=== PATIENT | female | born 1995 | race Caucasian/White ===

== ENCOUNTER → 2017-04-11 | Outpatient (CLI) | payer BC ==
--- NOTE | 2017-04-11 12:59 | Diagnostic Imaging Report ---
INDICATION: survey. TECHNIQUE: Multiple real-time grayscale images were obtained over the gravid uterus. COMPARISON: None. FINDINGS: Single live intrauterine at 19 weeks 3 days by sonographic measurements. EDC by today's ultrasound is 09/02/2017. presentation is transverse. Normal amniotic fluid index. Grade 1 placenta is located posteriorly with no placenta previa. heart rate measures 142 beats per minute. There is good visualization of the kidneys, stomach, and brain; however there is poor visualization of the bladder, four-chamber heart, three-vessel cord, spine, and cord insertion due to positioning. Recommend short-term sonographic follow-up. Biometrical measurements are as follows: Biparietal 4.8 cm, age 20 weeks 3 days. Head circumference 16.9 cm, age 19 weeks 4 days. Abdominal circumference 13.9 cm, age 19 weeks 3 days. Femur length 2.7 cm, age 18 weeks 2 days. Sonographic estimate age: 19 weeks 3 days. Sonographic estimated date of delivery: 09/02/17. Estimated Weight: 264 gm (+/- 39 gm). LMP percentile: 8%. heart rate: 142 beats per minute. number: 1 of 1. IMPRESSION: 1. Single live intrauterine at 19 weeks 3 days by sonographic measurements. 2. Limited anatomical survey given positioning. Recommend short-term sonographic follow-up. Dictated by: Dictated on workstation # [id number]
== END ==
LOC: RAD 09:40
PROVIDERS: ATTEND Obstetrics & Gynecology
DX: Z34.02 Encounter for supervision of normal first pregnancy, second trimester (principal); Z36 Encounter for antenatal screening of mother; Z3A.19 19 weeks gestation of pregnancy
CPT/HCPCS: 76805

== ENCOUNTER → 2017-05-24 | Outpatient (CLI) | payer BC ==
--- NOTE | 2017-05-24 12:21 | Diagnostic Imaging Report ---
INDICATION: Followup bladder, four-chamber view, three-vessel cord, spine, and cord insertion. TECHNIQUE: Multiple Real-time grayscale images were obtained over the gravid uterus. COMPARISON: 04/11/2017. FINDINGS: The heart rate is 167 BPM. The placenta is posterior with no placenta previa. The upper and mid spine appears normal. The lower spine is not well seen. The four-chamber view appears unremarkable. The cord insertion is still not well seen. A three-vessel cord is demonstrated. The bladder is seen with no abnormal dilatation. IMPRESSION: The lower spine and cord insertion are still not well seen due to position. Followup in 1 to 2 weeks is suggested. Dictated by: Dictated on workstation # [id number]
== END ==
LOC: RAD 09:45
PROVIDERS: ATTEND Obstetrics & Gynecology
DX: Z34.02 Encounter for supervision of normal first pregnancy, second trimester (principal); Z3A.00 Weeks of gestation of pregnancy not specified
CPT/HCPCS: 76816

== ENCOUNTER 2017-06-23 05:20 | Outpatient (CLI) | payer BC ==
[~2017-06-23] VITALS: Ht 167.6 cm; Wt 73.6 kg
[2017-06-23 05:39] VITALS: BP 103/60
[2017-06-23] MEDS ORDERED: PREN-37 PO (05:46)
[2017-06-23 05:53] LABS: BILIRUBIN,URINE NEGATIVE (NEGATIVE); KETONES,URINE NEGATIVE (NEGATIVE); LEUKOCYTE ESTERASE ,URINE 3+ (NEGATIVE); NITRITE,URINE NEGATIVE (NEGATIVE); PH,URINE 6 (5-9); PROTEIN,URINE 2+ (NEGATIVE); UROBILINOGEN,URINE NORMAL (NORMAL)
[2017-06-23 06:29] LABS: CALCIUM OXALATE CRYSTALS,UR FEW /LPF
[2017-06-23] MEDS ORDERED: ceFAZolin INJECTION 1,000 MG in NS (IVPB) 50 ML IV ONE (06:45)
[2017-06-23] MEDS ORDERED: D5 LR IV SOLUTION 1,000 ML IV ONE (06:45)
[2017-06-23 07:32] LABS: BASOPHILS % (AUTO) 0 % (0-10); EOSINOPHILS # (AUTO) 0.1 10^3/uL (0.0-0.3); EOSINOPHILS % (AUTO) 1 % (0-10); LYMPHOCYTES # (AUTO) 1.2 X 10^3 (1.0-4.0); LYMPHOCYTES % (AUTO) 12 % (12-44); MEAN CORPUSCULAR HEMOGLOBIN 30 PG (25-34); MEAN CORPUSCULAR HGB CONC 33 G/DL (32-36); MEAN CORPUSCULAR VOLUME 90 FL (80-99); MEAN PLATELET VOLUME 10.4 FL (7.4-10.4); MONOCYTES # (AUTO) 0.8 X 10^3 (0.0-1.0); MONOCYTES % (AUTO) 8 % (0-12); NEUTROPHILS # (AUTO) 7.9 X 10^3 (1.8-7.8); NEUTROPHILS % (AUTO) 79 % (42-75); PLATELET COUNT 241 10^3/uL (130-400); RED BLOOD COUNT 3.97 10^6/uL (4.35-5.85); RED CELL DISTRIBUTION WIDTH 12.8 % (10.0-14.5)
[2017-06-23 07:50] LABS: ALANINE AMINOTRANSFERASE 11 U/L (0-55); ALBUMIN 3.8 GM/DL (3.2-4.5); AMYLASE 60 U/L (25-125); ANION GAP 12 MMOL/L (5-14); ASPARTATE AMINO TRANSFERASE 16 U/L (5-34); BILIRUBIN,DIRECT 0.1 MG/DL (0.0-0.3); BILIRUBIN,INDIRECT 0.3 MG/DL; BILIRUBIN,TOTAL 0.4 MG/DL (0.1-1.0); BLOOD UREA NITROGEN 6 MG/DL (7-18); BUN/CREATININE RATIO 10; CALCIUM 9.6 MG/DL (8.5-10.1); CARBON DIOXIDE 19 MMOL/L (21-32); CHLORIDE 108 MMOL/L (98-107); CREATININE SERUM 0.63 MG/DL (0.60-1.30); GFR ESTIMATED > 60; GLUCOSE 82 MG/DL (70-105); LIPASE 24 U/L (8-78); POTASSIUM 3.7 MMOL/L (3.6-5.0); SODIUM 139 MMOL/L (135-145); TOTAL PROTEIN 7.1 GM/DL (6.4-8.2)
[2017-06-23 08:03] VITALS: BP 106/65
[2017-06-23] MEDS ORDERED: CEPH-507 PO (08:09)
[2017-06-23] MEDS ORDERED: ACET-789 PO (08:09)
--- NOTE | 2017-06-23 08:09 | Progress Note-Standard ---
Standard Progress Note Progress Notes/Assess & Plan Date Seen by Provider: Jun 23, 2017 Time Seen by Provider: 07:50 Progress/Assessment & Plan This 22-year-old female was admitted for observation this morning due to acute onset upper abdominal pain. The patient reports she was awoken from sleep by a sharp pain in the upper abdomen feeling like a knife sliding up and underneath her ribs. The patient reports a 9 out of 10 on the pain scale and was crying in pain when her parents brought her to the hospital. Since then her pain has now subsided to a 3 out of 10. She denies any nausea and no vomiting. She denies any contractions or lower abdominal pain or pressure. She reports positive movement Vital Sign - Last 24 Hours 06/23/17 05:39 Temp 97.1 Pulse 93 Resp 18 B/P (MAP) 103/60 O2 Delivery Room Air NST is reactive with a baseline of 135 moderate variability accelerations noted and no decelerations [place]: Irritability with rare contractions noted Laboratory Tests Test 06/23/17 05:30 06/23/17 07:14 Range/Units Urine Color YELLOW Urine Clarity SLIGHTLY CLOUDY Urine pH 6 5-9 Urine Specific [place] 1.025 H 1.016-1.022 Urine Protein 2+ H NEGATIVE Urine Glucose (UA) NEGATIVE NEGATIVE Urine Ketones NEGATIVE NEGATIVE Urine Nitrite NEGATIVE NEGATIVE Urine Bilirubin NEGATIVE NEGATIVE Urine Urobilinogen NORMAL NORMAL MG/DL Urine Leukocyte Esterase 3+ H NEGATIVE Urine RBC (Auto) 1+ H NEGATIVE Urine RBC NONE /HPF Urine WBC 10-25 H /HPF Urine Squamous Epithelial Cells 2-5 /HPF Urine Crystals PRESENT H /LPF Urine Calcium Oxalate Crystals FEW H /LPF Urine Bacteria LARGE H /HPF Urine Casts NONE /LPF Urine Mucus SMALL H /LPF Urine Culture Indicated YES White Blood Count 10.0 4.3-11.0 10^3/uL Red Blood Count 3.97 L 4.35-5.85 10^6/uL Hemoglobin 11.9 11.5-16.0 G/DL Hematocrit 36 35-52 % Mean Corpuscular Volume 90 80-99 FL Mean Corpuscular Hemoglobin 30 25-34 PG Mean Corpuscular Hemoglobin Concent 33 32-36 G/DL Red Cell Distribution Width 12.8 10.0-14.5 % Platelet Count 241 130-400 10^3/uL Mean Platelet Volume 10.4 7.4-10.4 FL Neutrophils (%) (Auto) 79 H 42-75 % Lymphocytes (%) (Auto) 12 12-44 % Monocytes (%) (Auto) 8 0-12 % Eosinophils (%) (Auto) 1 0-10 % Basophils (%) (Auto) 0 0-10 % Neutrophils # (Auto) 7.9 H 1.8-7.8 X 10^3 Lymphocytes # (Auto) 1.2 1.0-4.0 X 10^3 Monocytes # (Auto) 0.8 0.0-1.0 X 10^3 Eosinophils # (Auto) 0.1 0.0-0.3 10^3/uL Basophils # (Auto) 0.0 0.0-0.1 10^3/uL Sodium Level 139 135-145 MMOL/L Potassium Level 3.7 3.6-5.0 MMOL/L Chloride Level 108 H 98-107 MMOL/L Carbon Dioxide Level 19 L 21-32 MMOL/L Anion Gap 12 5-14 MMOL/L Blood Urea Nitrogen 6 L 7-18 MG/DL Creatinine 0.63 0.60-1.30 MG/DL Estimat Glomerular Filtration Rate > 60 BUN/Creatinine Ratio 10 Glucose Level 82 70-105 MG/DL Calcium Level 9.6 8.5-10.1 MG/DL Total Bilirubin 0.4 0.1-1.0 MG/DL Direct Bilirubin 0.1 0.0-0.3 MG/DL Indirect Bilirubin 0.3 MG/DL Aspartate Amino Transf (AST/SGOT) 16 5-34 U/L Alanine Aminotransferase (ALT/SGPT) 11 0-55 U/L Alkaline Phosphatase 73 40-136 U/L Total Protein 7.1 6.4-8.2 GM/DL Albumin 3.8 3.2-4.5 GM/DL Amylase Level 60 25-125 U/L Lipase 24 8-78 U/L Preliminary review of the ultrasound with the environmental services tech reveals mild dilation of the gallbladder, with evidence of biliary sludge. The cystic duct and the common bile duct appeared to be normal. There is no gallbladder wall thickening. Bilateral kidneys are within normal limits with mild hydronephrosis noted. No ureteral obstruction noted. Diagnosis: 22-year-old at 30 weeks gestation Biliary colic secondary to sludge Urinary tract infection Plan: Extensive dietary precautions given to the patient about avoiding high-fat meals as this would induce likely another episode of pain. The patient given Tylenol 3 to use for severe pain episodes. She is told to return to care if any fever or pain that is not resolved by the Tylenol 3 should occur. labor precautions reviewed UTI treated with Keflex 500 mg 4 times a day for 7 days and a culture is sent. NORA MARS DO Jun 23, 2017 8:09 am
--- NOTE | 2017-06-23 08:36 | Diagnostic Imaging Report ---
PROCEDURE: US abdomen complete. TECHNIQUE: Multiple real-time grayscale images were obtained over the abdomen in various projections. INDICATION: Upper abdominal pain. The patient is 30 weeks . FINDINGS: The visualized portions of the pancreas appear unremarkable. The liver is fairly homogeneous. No focal lesion is seen. There is hepatopetal flow in the portal vein. There is small amount of sludge suggested in the gallbladder with mild shadowing suggestive of stone components. There is also ringdown artifact seen from the gallbladder wall suggestive of adenomyomatosis. No gallbladder wall thickening. Sonographic Forrest sign is reportedly negative. The spleen is 9.7 x 4.5 x 3.9 cm. The right kidney is 12.5 cm, and the left kidney is 12.2 cm in length. There is mild hydronephrosis of the right kidney. The abdominal aorta is obscured. IVC is largely obscured. No fluid collection or ascites seen. IMPRESSION: 1. There is gallbladder sludge with some shadowing suggestive of small stones. No evidence of cholecystitis. 2. There is mild hydronephrosis of the right kidney, probably related to the known . Dictated by: Dictated on workstation # [id number]
== END 2017-06-23 08:55 | disposition home or self-care (01) ==
LOC: WSo 05:20 → LDRP 05:23 → WSo 08:55
PROVIDERS: ATTEND Obstetrics & Gynecology
DX: O26.613 Liver and biliary tract disorders in pregnancy, third trimester (principal); K80.50 Calculus of bile duct without cholangitis or cholecystitis without obstruction; O23.43 Unspecified infection of urinary tract in pregnancy, third trimester; Z3A.30 30 weeks gestation of pregnancy
CPT/HCPCS: 36415; 76700; 80053; 81000; 82150; 82247; 82248; 83690; 85025; 87088; 96361; 96375; 99213

== ENCOUNTER 2017-08-12 21:37 | Outpatient (CLI) | payer BC ==
[~2017-08-12] VITALS: Ht 167.6 cm; Wt 76.7 kg
[2017-08-12] VITALS (8 sets, daily range): BP systolic 110–132; BP diastolic 59–82
[~2017-08-12 21:37] MED LIST: ACET-789 PO; CEPH-507 PO; PREN-37 PO
[2017-08-12 21:58] LABS: BILIRUBIN,URINE NEGATIVE (NEGATIVE); KETONES,URINE NEGATIVE (NEGATIVE); LEUKOCYTE ESTERASE ,URINE 2+ (NEGATIVE); NITRITE,URINE NEGATIVE (NEGATIVE); PH,URINE 6.5 (5-9); PROTEIN,URINE NEGATIVE (NEGATIVE); UROBILINOGEN,URINE NORMAL (NORMAL)
[2017-08-12] MEDS ORDERED: ONDN4T PO (22:08)
[2017-08-12] MEDS ORDERED: CALC500T7 PO (22:09)
[2017-08-12] MEDS ORDERED: ACETAMINOPHEN 500 MG TAB (TYLENOL) ONE (22:57)
[2017-08-12] MEDS ORDERED: ACETAMINOPHEN 500 MG TAB (TYLENOL) PO ONE (23:15)
[2017-08-12] MEDS ORDERED: CEPH-507 PO (23:42)
== END 2017-08-12 23:50 | disposition home or self-care (01) ==
LOC: WSo 21:37 → LDRP 21:38 → WSo 23:50
PROVIDERS: ATTEND Obstetrics & Gynecology
DX: O23.43 Unspecified infection of urinary tract in pregnancy, third trimester (principal); O26.893 Other specified pregnancy related conditions, third trimester; M54.9 Dorsalgia, unspecified; Z3A.37 37 weeks gestation of pregnancy
CPT/HCPCS: 81000; 87088; 99214

== ENCOUNTER 2017-08-30 05:02 | Inpatient (IN) | payer BC, OTHER ==
[2017-08-30] VITALS (7 sets, daily range): BP systolic 111–134; BP diastolic 68–89
[~2017-08-30] VITALS: Ht 167.6 cm; Wt 78.7 kg
[~2017-08-30 05:02] MED LIST changes: +CALC500T7 PO; +ONDN4T PO
[2017-08-30] MEDS ORDERED: NS IV 1000 ML 1,000 ML ONE (05:11)
[2017-08-30] MEDS ORDERED: D5 LR IV SOLUTION 1,000 ML IV SCH (05:29)
[2017-08-30] MEDS ORDERED: NS IV 500 ML 500 ML IV ONE (05:30)
[2017-08-30 05:35] LABS: BASOPHILS % (AUTO) 0 % (0-10); EOSINOPHILS # (AUTO) 0.1 10^3/uL (0.0-0.3); EOSINOPHILS % (AUTO) 1 % (0-10); LYMPHOCYTES # (AUTO) 2.1 X 10^3 (1.0-4.0); LYMPHOCYTES % (AUTO) 25 % (12-44); MEAN CORPUSCULAR HEMOGLOBIN 30 PG (25-34); MEAN CORPUSCULAR HGB CONC 33 G/DL (32-36); MEAN CORPUSCULAR VOLUME 89 FL (80-99); MEAN PLATELET VOLUME 10.9 FL (7.4-10.4); MONOCYTES # (AUTO) 0.6 X 10^3 (0.0-1.0); MONOCYTES % (AUTO) 7 % (0-12); NEUTROPHILS # (AUTO) 5.7 X 10^3 (1.8-7.8); NEUTROPHILS % (AUTO) 67 % (42-75); PLATELET COUNT 256 10^3/uL (130-400); RED BLOOD COUNT 3.88 10^6/uL (4.35-5.85); WHITE BLOOD COUNT 8.5 10^3/uL (4.3-11.0)
[2017-08-30] MEDS ORDERED: CITRIC ACID/SOB CIT (BICITRA) 30 ML UDC ONE (05:42)
[2017-08-30] MEDS ORDERED: METOCLOPRAMIDE INJ 10 MG/2 ML (REGLAN) ONE (05:42)
[2017-08-30] MEDS ORDERED: FAMOTIDINE 20MG/2ML IV (PEPCID) ONE (05:42)
[2017-08-30] MEDS ORDERED: ceFAZolin 2 GM/50 ML NS 50 ML ONE (05:42)
[2017-08-30] MEDS ORDERED: ceFAZolin 2 GM/50 ML NS 50 ML IV ONE (05:45)
--- NOTE | 2017-08-30 05:57 | History & Physical-OB ---
OB - Chief Complaint & HPI Date/Time Date of Admission: Date of Admission: Aug 30, 2017 at 05:15 Time Seen by Provider: 05:45 Chief Complaint/History Hx : 1 Hx Para: 0 Expected Date of Delivery: Aug 30, 2017 Gestational Age in Weeks: 40 Indication for : other (Placental abruption, vaginal hemorrhage) Other reason for admission: Placental abruption, vaginal hemorrhage Admission Nurse Assessment Rev: Yes History of Labs O pos Antibody neg RI RPR NR HBsAg NR HIV NR GC neg GBS neg Allergies and Home Medications Allergies Coded Allergies: No Known Drug Allergies (Unverified , 06/23/17) Home Medications Calcium Carbonate 200 Mg Tab.chew, 200 MG PO PRN, (Reported) Cephalexin 500 Mg Capsule, 500 MG PO QID for 7 Days, #28 Ref 0 Prescribed by: IRENE TUTTLE on 08/12/17 2342 Ondansetron HCl 4 Mg Tab, 4 MG PO PRN, (Reported) Vit/Iron Fumarate/FA 1 Each Tablet, 1 EACH PO DAILY, (Reported) OB - History Hx of Present Care: Yes Ultrasounds: Normal mid trimester US Obstetrical Complications: None Medical Complications: None Patient Past Medical History none Social History/Family History Recent Infectious Disease Expo: No OB - Admission Exam Physical Exam HEENT: NCAT Heart: Rhythm Normal Lungs: Clear Abdomen: Gravid Extremities: Normal Reflexes: Normal Cervical Dilatation: 2cm Effacement: 75% Station: -1 Membranes: Intact Heart Rate: 130's Accelerations: No Accelerations Decelerations: Variable Decelerations Short Term Variability: Absent Nursing Home Variability: Absent (0-2) Contractions on Admission: < 5 Minutes Apart Intensity: Firm Labs Laboratory Tests Test 08/30/17 05:25 Range/Units White Blood Count 8.5 4.3-11.0 10^3/uL Red Blood Count 3.88 L 4.35-5.85 10^6/uL Hemoglobin 11.5 11.5-16.0 G/DL Hematocrit 35 35-52 % Mean Corpuscular Volume 89 80-99 FL Mean Corpuscular Hemoglobin 30 25-34 PG Mean Corpuscular Hemoglobin Concent 33 32-36 G/DL Red Cell Distribution Width 13.0 10.0-14.5 % Platelet Count 256 130-400 10^3/uL Mean Platelet Volume 10.9 H 7.4-10.4 FL Neutrophils (%) (Auto) 67 42-75 % Lymphocytes (%) (Auto) 25 12-44 % Monocytes (%) (Auto) 7 0-12 % Eosinophils (%) (Auto) 1 0-10 % Basophils (%) (Auto) 0 0-10 % Neutrophils # (Auto) 5.7 1.8-7.8 X 10^3 Lymphocytes # (Auto) 2.1 1.0-4.0 X 10^3 Monocytes # (Auto) 0.6 0.0-1.0 X 10^3 Eosinophils # (Auto) 0.1 0.0-0.3 10^3/uL Basophils # (Auto) 0.0 0.0-0.1 10^3/uL OB - Assessment/Plan/Diagnosis Assessment Assessment: section Plan Plan: Section Other Plan STAT section called, concern for well being discussed with patient and briefly discuss risk of . Will proceed as soon as OR able. Discharge Diagnosis Diagnosis: 22 yo @ 40 weeks Placental abruption with vaginal hemorrhage distress Remote from delivery NORA MARS DO Aug 30, 2017 05:56
[2017-08-30] MEDS ORDERED: OXYTOCIN/NORMAL SALINE 500 ML IV SCH (05:58)
[2017-08-30] MEDS ORDERED: CATHETER FLUSH 10 ML SYR IV SCH (06:00)
[2017-08-30] MEDS ORDERED: TETANUS,DIPTH,PERTUSS P/F (BOOSTRIX) 0.5 ML VIAL IM SCH (06:00)
[2017-08-30] MEDS ORDERED: MEASLES,MUMPS,RUBELLA 1 EA INJ SC SCH (06:00)
[2017-08-30] MEDS ORDERED: ONDANSETRON 4 MG/2 ML (SDV) Z0FRAN IVP PRN ×2 (06:00→07:15)
[2017-08-30] MEDS ORDERED: HYDROmorphone (DILAUDID) 2 MG/ML VIAL IVP PRN (06:00)
[2017-08-30] MEDS ORDERED: MIDAZOLAM 2 MG/2 ML (VERSED) VIAL ONE (06:10)
[2017-08-30] MEDS ORDERED: proPOfol 200 MG/20 ML (DIPRIVAN) VIAL IV ONE (06:11)
[2017-08-30] MEDS ORDERED: SEVOFLURANE (ULTANE) 15 ML INHAL SOLN ONE ×3 (06:11→06:36)
[2017-08-30] MEDS ORDERED: SUCCINYLCHOLINE INJ 100 MG/5 ML SYR ONE (06:11)
[2017-08-30] MEDS ORDERED: fentaNYL INJECTION 100 MCG/2 ML AMP ONE (06:21)
[2017-08-30] MEDS ORDERED: morphine INJ 10 MG/ML 1ML (SYR OR VIAL) ONE (06:41)
[2017-08-30] MEDS: morphine INJ 10 MG/ML 1ML (SYR OR VIAL) IVP PRN ×2 (07:09→07:21)
--- NOTE | 2017-08-30 07:18 | Diagnostic Imaging Report ---
EXAM: ABDOMEN/KUB 1VIEW INDICATION: Emergency section. Postoperative. COMPARISON: None. FINDINGS: No radiopaque foreign bodies. Nonspecific bowel gas pattern. No acute osseous findings. IMPRESSION: Negative for postoperative purposes. Dictated by: Dictated on workstation # [id number]
[2017-08-30] MEDS: KETOROLAC 30 MG/ML VIAL IVP SCH ×3 (07:21→20:38)
[2017-08-30] MEDS ORDERED: LACTATED RINGERS 1,000 ML IV PRN (08:58)
[2017-08-30] MEDS ORDERED: FAMOTIDINE 20MG/2ML IV (PEPCID) IV ONE (09:00)
[2017-08-30] MEDS ORDERED: CITRIC ACID/SOB CIT (BICITRA) 30 ML UDC PO ONE (09:00)
[2017-08-30] MEDS ORDERED: METOCLOPRAMIDE INJ 10 MG/2 ML (REGLAN) IV ONE (09:00)
[2017-08-30] MEDS: DOCUSATE SODIUM 100 MG (COLACE) CAP PO SCH ×2 (09:37→20:38)
[2017-08-30] MEDS: HYDROcodone/APAP 5 MG/325 MG (LORTAB) TAB PO PRN ×2 (09:38→18:57)
--- NOTE | 2017-08-30 18:01 | OPERATIVE REPORT ---
DATE OF SERVICE: PREOPERATIVE DIAGNOSIS: 1. A 22-year-old 40 weeks gestation. 2. Placental abruption. 3. distress. 4. Remote from delivery. POSTOPERATIVE DIAGNOSIS: 1. A 22-year-old 40 weeks gestation. 2. Placental abruption. 3. distress. 4. Remote from delivery. PROCEDURE: Primary low transverse section, emergency. SURGEON: NORA MARS DO. ANESTHESIA: General endotracheal. EBL: 400 mL. URINE OUTPUT: 20 mL. FLUIDS: 800 mL of lactated Ringer's solution. FINDINGS: Live male infant, weight pending with Apgars of 4 and 8. Grossly normal appearing uterus, bilateral fallopian tubes and ovaries and grossly identified large placental abruption approximately half of the placental surface. SPECIMEN SENT: Placenta. INDICATION FOR PROCEDURE: This 22-year-old female presented to the emergency department with an acute vaginal hemorrhage at 40 weeks gestation. She stated that she woke up from sleep with a large amount of bleeding noted. This continued to soak through her clothes and she proceeded to the emergency department. Once on the labor floor heart tones were initially found to be stable, however she continued to contract every 2-3 minutes. The patient was not terribly uncomfortable based on nursing assessment, however bleeding continued to be profuse. Therefore I was contacted prior to labs being drawn. I ordered admission orders and presented to the hospital urgently. Upon my presentation to the hospital there began to be evidence of distress with variable decelerations down into the 70s with return to baseline in the 130s. Variability began to decrease and decelerations began to be more frequent and prolonged. I evaluated the patient. There was a significant amount of vaginal bleeding occurring especially with contractions. Cervix was 2 cm, 70% effaced, -2 station and posterior. Due to the patient being remote from delivery and intolerance of this abruption, I discussed with the patient proceeding with emergency . Risk was reviewed with the patient briefly including risk of bleeding and infection and damaging any of the surrounding structures including but not limited to the uterus, bowel, bladder, risk from anesthesia. However I did express to the patient my concern for well being at which point she was agreeable to proceed. Consent was obtained. The patient was taken to the operating room prior to anesthesia staff being available but once I knew that anesthesia in the building, we took the patient back to the operating room. OPERATIVE REPORT IN DETAIL: Once in the operating room the patient is placed on the operating room table. Bonilla catheter was placed and the patient is prepped and draped by myself and a labor nurse present. There is no preoperative count performed. Once I have notification that anesthesia has airway access I proceed with making a Pfannenstiel skin incision and carrying it down to the underlying fascia, stretching it using blunt traction, I stretch the rectus muscles superior and inferiorly with blunt traction. The peritoneum is identified and entered bluntly and extended using blunt traction. The lower uterine segment is then identified. The low transverse incisions made to the lower uterine segment at which point I am able to extend the lower uterine segment laterally and rupture membranes with digital pressure. The infant is found in the vertex presentation. The infant's head is elevated up to the incision, anterior and posterior shoulders are delivered and is then brought onto the operative field where the cord is then milked back to the . It is dually clamped and cut and infant is handed off to the waiting rn tele who I called for on delivery which was Dr. Calderon. Cord blood is then collected however there is scant amount of blood in the umbilical cord. Upon evaluating the placenta nearly half of its mass is protruding through the uterine incision prior to me even evaluating its release suspicious for a large partial abruption. The remainder of the placenta is delivered spontaneously there at that point and IV Pitocin is initiated to facilitate uterine contraction. Uterine fundus becomes firm with bimanual massage and a Rashmi ring retractor is then placed into the peritoneal incision which offers excellent lateral sidewall retraction. I then exteriorized the uterus and cleared of all endometrial clots and debris. I then proceeded with closing the uterine incision using 0 Vicryl suture in a running locked fashion and second layer of imbricating 0 Monocryl was placed. Excellent hemostasis was noted after doing this. I then copiously irrigated the pelvis using normal saline. There is no active bleeding noted from any of my dissection planes. I placed the uterus back within the pelvis and placed the Interceed antiadhesive over my low transverse incision. I proceeded with closing the peritoneal incision using 3-0 Vicryl suture in a running fashion. The rectus muscle was reapproximated using 3-0 Vicryl suture in interrupted fashion. The fascia was reapproximated using 0 Vicryl suture in a running fashion. The subcutaneous tissue was reapproximated using a 3-0 plain interrupted subcutaneous stitch and the skin was reapproximated using 4-0 Monocryl and a running subcuticular. Dermabond was applied to incision. Sterile dressing is adhesive white tape. The patient tolerated the procedure well and taken to recovery area in stable condition. Postop flat plate abdominal x-ray is performed and is negative for any retained sponges or instruments. Two grams of Ancef is given preoperatively for infection prophylaxis. Job ID: [id number] DocumentID: [id number] Dictated Date: 08/30/2017 07:17:51 Field Mechanical Meter Tester Date: 08/30/2017 18:01:07 Dictated By: DO TEMO ANDERSON
[2017-08-30] MEDS: CATHETER FLUSH 10 ML SYR IV SCH (20:38)
[2017-08-31] VITALS (15 sets, daily range): BP systolic 86–133; BP diastolic 18–82
[2017-08-31] MEDS: KETOROLAC 30 MG/ML VIAL IVP SCH (02:16)
[2017-08-31] MEDS: CATHETER FLUSH 10 ML SYR IV SCH (02:16)
[2017-08-31] MEDS: HYDROcodone/APAP 5 MG/325 MG (LORTAB) TAB PO PRN ×3 (02:29→19:52)
[2017-08-31 06:07] LABS: BASOPHILS % (AUTO) 0 % (0-10); EOSINOPHILS % (AUTO) 0 % (0-10); LYMPHOCYTES # (AUTO) 1.2 X 10^3 (1.0-4.0); LYMPHOCYTES % (AUTO) 11 % (12-44); MEAN CORPUSCULAR HEMOGLOBIN 30 PG (25-34); MEAN CORPUSCULAR HGB CONC 32 G/DL (32-36); MEAN CORPUSCULAR VOLUME 91 FL (80-99); MEAN PLATELET VOLUME 10.2 FL (7.4-10.4); MONOCYTES # (AUTO) 0.6 X 10^3 (0.0-1.0); MONOCYTES % (AUTO) 6 % (0-12); NEUTROPHILS # (AUTO) 9.8 X 10^3 (1.8-7.8); NEUTROPHILS % (AUTO) 84 % (42-75); PLATELET COUNT 129 10^3/uL (130-400); RED BLOOD COUNT 1.96 10^6/uL (4.35-5.85); RED CELL DISTRIBUTION WIDTH 13.2 % (10.0-14.5); WHITE BLOOD COUNT 11.7 10^3/uL (4.3-11.0)
[2017-08-31] MEDS ORDERED: NS IV 500 ML 500 ML IV SCH (06:46)
[2017-08-31] MEDS ORDERED: INFLUENZA TRIvalent 2017-2018 0.5 ML/45 MCG SYR IM ONE (07:00)
[2017-08-31] MEDS: IBUPROFEN 600 MG (MOTRIN) TAB PO SCH ×3 (08:06→21:28)
[2017-08-31] MEDS: DOCUSATE SODIUM 100 MG (COLACE) CAP PO SCH ×2 (08:06→19:52)
[2017-08-31 13:36] LABS: INR 0.9 (0.8-1.4); PROTHROMBIN TIME PATIENT 12.4 SEC (12.2-14.7)
--- NOTE | 2017-08-31 15:00 | Progress Note-Standard ---
Standard Progress Note Progress Notes/Assess & Plan Date Seen by Provider: Aug 31, 2017 Time Seen by Provider: 12:30 Progress/Assessment & Plan Patient doing well today. Feeling very weak, but pain controlled. Denies heavy lochia, no other concerns voiced. Vital Sign - Last 24 Hours 08/30/17 08/30/17 08/31/17 08/31/17 16:00 20:38 00:05 04:46 Temp 97.6 98.6 98.7 98.5 Pulse 88 102 88 86 Resp 18 18 18 18 B/P (MAP) 126/82 111/68 106/59 107/62 Pulse Ox 97 98 98 98 O2 Delivery Room Air Room Air Room Air Room Air 08/31/17 08/31/17 08/31/17 08/31/17 08:04 08:35 08:44 08:59 Temp 98.8 98.3 98.3 98.0 Pulse 82 86 86 88 Resp 18 18 18 18 B/P (MAP) 114/70 121/72 121/72 120/77 Pulse Ox 98 98 98 99 O2 Delivery Room Air Room Air Room Air Room Air 08/31/17 08/31/17 08/31/17 08/31/17 08:59 09:21 09:54 09:54 Temp 98.0 97.5 97.3 97.3 Pulse 88 82 75 75 Resp 18 18 18 18 B/P (MAP) 120/72 116/67 112/59 112/59 Pulse Ox 99 99 99 99 O2 Delivery Room Air Room Air Room Air Room Air 08/31/17 08/31/17 08/31/17 08/31/17 10:53 10:53 10:53 12:15 Temp 98.1 98.1 98.1 98.1 Pulse 89 81 89 96 Resp 20 20 20 18 B/P (MAP) 113/54 113/54 113/54 120/72 Pulse Ox 99 99 99 99 O2 Delivery Room Air Room Air Room Air Room Air 08/31/17 08/31/17 08/31/17 12:20 12:35 14:15 Temp 98.2 98.7 97.8 Pulse 96 100 99 Resp 18 18 18 B/P (MAP) 120/72 114/69 125/79 Pulse Ox 99 99 99 O2 Delivery Room Air Room Air Room Air Incision: c/d/i Laboratory Tests Test 08/31/17 05:50 08/31/17 13:14 Range/Units White Blood Count 11.7 H 4.3-11.0 10^3/uL Red Blood Count 1.96 L 4.35-5.85 10^6/uL Hemoglobin 5.8 #*L 11.5-16.0 G/DL Hematocrit 18 *L 35-52 % Mean Corpuscular Volume 91 80-99 FL Mean Corpuscular Hemoglobin 30 25-34 PG Mean Corpuscular Hemoglobin Concent 32 32-36 G/DL Red Cell Distribution Width 13.2 10.0-14.5 % Platelet Count 129 L 130-400 10^3/uL Mean Platelet Volume 10.2 7.4-10.4 FL Neutrophils (%) (Auto) 84 H 42-75 % Lymphocytes (%) (Auto) 11 L 12-44 % Monocytes (%) (Auto) 6 0-12 % Eosinophils (%) (Auto) 0 0-10 % Basophils (%) (Auto) 0 0-10 % Neutrophils # (Auto) 9.8 H 1.8-7.8 X 10^3 Lymphocytes # (Auto) 1.2 1.0-4.0 X 10^3 Monocytes # (Auto) 0.6 0.0-1.0 X 10^3 Eosinophils # (Auto) 0.0 0.0-0.3 10^3/uL Basophils # (Auto) 0.0 0.0-0.1 10^3/uL Prothrombin Time 12.4 12.2-14.7 SEC INR Comment 0.9 0.8-1.4 Activated Partial Thromboplast Time 27 24-35 SEC Fibrinogen 427 221-496 MG/DL Diagnosis: PPD 1 Emergency PLTCS Abruptio placentae Acute blood loss anemia P: 2 u PRBC ordered and given today. Replace iron Continue routine PP care NORA MARS DO Aug 31, 2017 3:00 pm
[2017-09-01 01:00] VITALS: BP 119/78
[2017-09-01] MEDS: IBUPROFEN 600 MG (MOTRIN) TAB PO SCH ×2 (03:07→08:53)
[2017-09-01 05:30] VITALS: BP 117/77
[2017-09-01 05:52] LABS: BASOPHILS % (AUTO) 0 % (0-10); EOSINOPHILS % (AUTO) 0 % (0-10); LYMPHOCYTES # (AUTO) 1.5 X 10^3 (1.0-4.0); LYMPHOCYTES % (AUTO) 13 % (12-44); MEAN CORPUSCULAR HEMOGLOBIN 29 PG (25-34); MEAN CORPUSCULAR HGB CONC 32 G/DL (32-36); MEAN CORPUSCULAR VOLUME 90 FL (80-99); MEAN PLATELET VOLUME 10.3 FL (7.4-10.4); MONOCYTES # (AUTO) 0.7 X 10^3 (0.0-1.0); MONOCYTES % (AUTO) 6 % (0-12); NEUTROPHILS # (AUTO) 9.1 X 10^3 (1.8-7.8); NEUTROPHILS % (AUTO) 80 % (42-75); PLATELET COUNT 129 10^3/uL (130-400); RED BLOOD COUNT 2.59 10^6/uL (4.35-5.85); RED CELL DISTRIBUTION WIDTH 14.5 % (10.0-14.5); WHITE BLOOD COUNT 11.3 10^3/uL (4.3-11.0)
[2017-09-01 08:45] VITALS: BP 108/73
[2017-09-01] MEDS ORDERED: INFLUENZA TRIvalent 2017-2018 0.5 ML/45 MCG SYR IM ONE (08:47)
[2017-09-01] MEDS: DOCUSATE SODIUM 100 MG (COLACE) CAP PO SCH (08:53)
--- NOTE | 2017-09-01 09:04 | Anesthesia-General Post-Op ---
General Patient Condition Mental Status/LOC: Same as Preop Cardiovascular: Satisfactory Nausea/Vomiting: Absent Respiratory: Satisfactory Pain: Controlled Complications: Absent Post Op Complications Complications None Follow Up Care/Instructions Patient Instructions None needed. Anesthesia/Patient Condition Patient Condition Patient is doing well, no complaints, stable vital signs, no apparent adverse anesthesia problems. No complications reported per nursing. KYLE COOK CRNA Sep 01, 2017 09:04
[2017-09-01] MEDS ORDERED: DOCU100C37 PO (10:13)
[2017-09-01] MEDS ORDERED: FERR-74 PO (10:13)
[2017-09-01] MEDS ORDERED: HYDR-3812 PO (10:13)
[2017-09-01] MEDS ORDERED: IBUP-1773 PO (10:13)
--- NOTE | 2017-09-01 10:14 | Discharge Inst-Women's Service ---
Discharge Inst-Women's Serv Depart Medication/Instructions New, Converted or Re-Newed RX: RX on Chart Consults/Follow Up Additional Follow Up: Yes Orders/Referrals Dr. Dillon in 7-10 days and in 6 weeks Activity Activity: Activity as Tolerated Driving Instructions: No Driving for 1 Week NO SMOKING: NO SMOKING Nothing Inside Vagina: No Douching, No [place], No Tampons Diet Discharge Diet: No Restrictions Symptoms to Report to : Bleeding Excessive, Pain Increased, Fever Over 101 Degrees F, Vaginal Bleeding Increase, Questions/Concerns For Any Problems or Questions: Contact Your Physician Skin/Wound Care Infection Signs and Symptoms: Increased Redness, Foul Odor of Wound, Increased Drainage, Skin Itchy or Has a Rash, Increased Swelling, Temperature Above 101 F Operative Area Clean and Dry: Keep Incision Clean/Dry Stitches/Raghavendra/Dermabond: Dermabond, Care of Stitches Bathing Instructions: NORA Harrison DO Sep 01, 2017 10:14 am
--- NOTE | 2017-09-01 10:16 | Progress Note-Standard ---
Standard Progress Note Progress Notes/Assess & Plan Date Seen by Provider: Sep 01, 2017 Time Seen by Provider: 10:00 Progress/Assessment & Plan Patient doing better today. Feeling more energy and able to ambulate without difficulty, pain is better as well. Denies heavy lochia, no other concerns voiced. Vital Sign - Last 24 Hours 08/31/17 08/31/17 08/31/17 08/31/17 10:53 10:53 10:53 12:15 Temp 98.1 98.1 98.1 98.1 Pulse 89 81 89 96 Resp B/P (MAP) 113/54 113/54 113/54 120/72 Pulse Ox 99 99 99 99 O2 Delivery Room Air Room Air Room Air Room Air 08/31/17 08/31/17 08/31/17 08/31/17 12:20 12:35 14:15 16:00 Temp 98.2 98.7 97.8 98.1 Pulse 96 100 99 99 Resp 18 18 18 B/P (MAP) 120/72 114/69 125/79 110/69 Pulse Ox 99 99 99 98 O2 Delivery Room Air Room Air Room Air Room Air 08/31/17 09/01/17 09/01/17 09/01/17 19:50 01:00 05:30 08:45 Temp 98.6 97.6 97.3 97.4 Pulse 116 88 75 82 Resp 18 18 18 18 B/P (MAP) 133/82 119/78 117/77 108/73 Pulse Ox 100 98 O2 Delivery Room Air Room Air Incision: c/d/i Laboratory Tests Test 08/31/17 13:14 09/01/17 05:30 Range/Units Prothrombin Time 12.4 12.2-14.7 SEC INR Comment 0.9 0.8-1.4 Activated Partial Thromboplast Time 27 24-35 SEC Fibrinogen 427 221-496 MG/DL White Blood Count 11.3 H 4.3-11.0 10^3/uL Red Blood Count 2.59 L 4.35-5.85 10^6/uL Hemoglobin 7.5 #L 11.5-16.0 G/DL Hematocrit 23 L 35-52 % Mean Corpuscular Volume 90 80-99 FL Mean Corpuscular Hemoglobin 29 25-34 PG Mean Corpuscular Hemoglobin Concent 32 32-36 G/DL Red Cell Distribution Width 14.5 10.0-14.5 % Platelet Count 129 L 130-400 10^3/uL Mean Platelet Volume 10.3 7.4-10.4 FL Neutrophils (%) (Auto) 80 H 42-75 % Lymphocytes (%) (Auto) 13 12-44 % Monocytes (%) (Auto) 6 0-12 % Eosinophils (%) (Auto) 0 0-10 % Basophils (%) (Auto) 0 0-10 % Neutrophils # (Auto) 9.1 H 1.8-7.8 X 10^3 Lymphocytes # (Auto) 1.5 1.0-4.0 X 10^3 Monocytes # (Auto) 0.7 0.0-1.0 X 10^3 Eosinophils # (Auto) 0.0 0.0-0.3 10^3/uL Basophils # (Auto) 0.0 0.0-0.1 10^3/uL Diagnosis: PPD 2 Emergency PLTCS Abruptio placentae Acute blood loss anemia- s/p 2 u PRBC P: Replace iron Continue routine PP care Discharge later today NORA MARS DO Sep 01, 2017 10:16 am
[2017-09-01 12:45] VITALS: BP 119/77
[2017-09-01 13:30] VITALS: BP 119/77
== END 2017-09-01 13:30 | disposition home or self-care (01) | DRG 765 ==
LOC: WSo 05:02 → LDRP 05:03 → WSo 05:15 → LDRP 08:33
PROVIDERS: ADMIT Obstetrics & Gynecology; ATTEND Obstetrics & Gynecology
PROC: 10D00Z1 Extraction of Products of Conception, Low, Open Approach (ICD-10-PCS; principal; 2017-08-30 06:09)
DX: O45.93 Premature separation of placenta, unspecified, third trimester (principal); O99.013 Anemia complicating pregnancy, third trimester; D62 Acute posthemorrhagic anemia; O76 Abnormality in fetal heart rate and rhythm complicating labor and delivery; Z37.0 Single live birth; Z23 Encounter for immunization; Z3A.40 40 weeks gestation of pregnancy
CPT/HCPCS: 36415; 74000; 85025; 85384; 85610; 85730; 86850; 86900; 86901; 86920; 94664; 99212

== ENCOUNTER 2017-11-01 05:24 | Emergency (ER) | payer BC, MEDICAID ==
[~2017-11-01] VITALS: Ht 167.6 cm; Wt 68.0 kg
[~2017-11-01 05:24] MED LIST changes: +DOCU100C37 PO; +FERR-74 PO; +HYDR-3812 PO; +IBUP-1773 PO
[2017-11-01 06:10] LABS: BILIRUBIN,URINE NEGATIVE (NEGATIVE); KETONES,URINE NEGATIVE (NEGATIVE); LEUKOCYTE ESTERASE ,URINE 3+ (NEGATIVE); NITRITE,URINE NEGATIVE (NEGATIVE); PH,URINE 6.5 (5-9); PROTEIN,URINE 1+ (NEGATIVE); UROBILINOGEN,URINE NORMAL (NORMAL)
[2017-11-01 06:26] LABS: BASOPHILS % (AUTO) 0 % (0-10); EOSINOPHILS # (AUTO) 0.2 10^3/uL (0.0-0.3); EOSINOPHILS % (AUTO) 2 % (0-10); LYMPHOCYTES # (AUTO) 1.5 X 10^3 (1.0-4.0); LYMPHOCYTES % (AUTO) 15 % (12-44); MEAN CORPUSCULAR HEMOGLOBIN 28 PG (25-34); MEAN CORPUSCULAR HGB CONC 32 G/DL (32-36); MEAN CORPUSCULAR VOLUME 87 FL (80-99); MEAN PLATELET VOLUME 10.4 FL (7.4-10.4); MONOCYTES # (AUTO) 0.7 X 10^3 (0.0-1.0); MONOCYTES % (AUTO) 7 % (0-12); NEUTROPHILS # (AUTO) 7.4 X 10^3 (1.8-7.8); NEUTROPHILS % (AUTO) 76 % (42-75); PLATELET COUNT 287 10^3/uL (130-400); RED BLOOD COUNT 4.33 10^6/uL (4.35-5.85); RED CELL DISTRIBUTION WIDTH 12.9 % (10.0-14.5); WHITE BLOOD COUNT 9.7 10^3/uL (4.3-11.0)
--- NOTE | 2017-11-01 06:43 | ED Abdominal Pain ---
General Chief Complaint: Abdominal/GI Problems Stated Complaint: GALLBLADDER PAIN Nursing Triage Note: abdominal pain x1hr Sepsis Screen: No Definite Risk Source of Information: Patient Exam Limitations: No Limitations History of Present Illness Time Seen By Provider: 06:00 Initial Comments Here with report of pain that woke her up at about 430 a.m. to her right flank and back. This radiated around to the front across the abdomen. She's had nausea and vomiting a few times and pain continued. 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 She had gallbladder ultrasound done at the end of her and was found to have sludge in questioning diffuse stones or small. There is concerns about gallbladder problems. This morning she had the typical onset that she normally does but it did not go away after vomiting and impacted not go away for over an hour. After arriving at the ER, patient's pain started to subside and on exam she was essentially pain-free without nausea. Denies recent fever or chills. She did have her baby 2 months ago and is currently breast-feeding. Timing/Duration: 1-3 Hours Severity/Quality: Moderate, Severe, Aching Location: RUQ, Flank Radiation: LUQ, Back, Epigastric Activities at Onset: Sleeping Modifying Factors: Improves With Resting, Improves With Vomiting Associated Symptoms: Back Pain, No Fever/Chills, No Heartburn, Nausea/Vomiting , No Shortness of Air, No Swelling/Mass in Abdomen, No Weakness Allergies and Home Medications Allergies Coded Allergies: No Known Drug Allergies (Unverified , 06/23/17) Home Medications Vit/Iron Fumarate/FA 1 Each Tablet, 1 EACH PO DAILY, (Reported) Review of Systems Constitutional: see HPI, No chills, No fever EENTM: No Symptoms Reported Respiratory: No Symptoms Reported Cardiovascular: No Symptoms Reported Gastrointestinal: See HPI, Denies Diarrhea, Nausea, Vomiting Genitourinary: No Symptoms Reported Musculoskeletal: see HPI, back pain, No muscle pain Skin: no symptoms reported Psychiatric/Neurological: No Symptoms Reported Past Bflthoy-Luueng-Smtgrm Hx Patient Social History Alcohol Use: Denies Use Recreational Drug Use: No Smoking Status: Never a Smoker Recent Foreign Travel: No Contact w/Someone Who Travel: No Recent Infectious Disease Expo: No Recent Hopitalizations: No Immunizations Up To Date Tetanus Booster (TDap): Less than 5yrs Seasonal Allergies Seasonal Allergies: Yes Surgeries History of Surgeries: Yes Surgeries: Section Respiratory History of Respiratory Disorde: No Cardiovascular History of Cardiac Disorders: No Neurological History of Neurological Disord: No Reproductive System : No Genitourinary History of Genitourinary Disor: No Gastrointestinal History of Gastrointestinal Di: No Musculoskeletal History of Musculoskeletal Dis: No Endocrine History of Endocrine Disorders: No HEENT History of HEENT Disorders: No Cancer History of Cancer: No Psychosocial History of Psychiatric Problem: Yes Behavioral Health Disorders: PTSD, Depression Integumentary History of Skin or Integumenta: Yes Skin/Integumentary Disorders: Psoriasis Blood Transfusions History of Blood Disorders: No Reviewed Nursing Assessment Reviewed/Agree w Nursing PMH: Yes Family Medical History Family Medial History: Cardiovascular disease 19 MOTHER Diabetes mellitus 19 MOTHER Hypercholesterolemia 19 MOTHER Hypertension 19 MOTHER Physical Exam Vital Signs VS - Last 72 Hours, by Label 11/01/17 05:30 Temp 97.5 Pulse 84 Resp 16 B/P (MAP) 110/71 (84) Pulse Ox 99 O2 Delivery Room Air Capillary Refill : Less Than 3 Seconds General Appearance: WD/WN, no apparent distress Neck: full range of motion, supple Respiratory: lungs clear, normal breath sounds Cardiovascular: regular rate, rhythm, no murmur Gastrointestinal: normal bowel sounds, soft, No guarding, No rebound, tenderness (slight tenderness right upper quadrant) Extremities: non-tender, normal inspection Back: normal inspection, no CVA tenderness, no vertebral tenderness Neurologic/Psychiatric: alert, oriented x 3 Skin: normal color, warm/dry Progress/Results/Core Measures Results/Orders Lab Results Laboratory Tests Test 11/01/17 06:05 11/01/17 06:20 Range/Units Urine Color YELLOW Urine Clarity VERY CLOUDY H Urine pH 6.5 5-9 Urine Specific [place] 1.020 1.016-1.022 Urine Protein 1+ H NEGATIVE Urine Glucose (UA) NEGATIVE NEGATIVE Urine Ketones NEGATIVE NEGATIVE Urine Nitrite NEGATIVE NEGATIVE Urine Bilirubin NEGATIVE NEGATIVE Urine Urobilinogen NORMAL NORMAL MG/DL Urine Leukocyte Esterase 3+ H NEGATIVE Urine RBC (Auto) 2+ H NEGATIVE Urine RBC 5-10 H /HPF Urine WBC 10-25 H /HPF Urine Squamous Epithelial Cells 5-10 /HPF Urine Crystals NONE /LPF Urine Bacteria MODERATE H /HPF Urine Casts NONE /LPF Urine Mucus NEGATIVE /LPF Urine Culture Indicated YES Urine Test NEGATIVE NEGATIVE White Blood Count 9.7 4.3-11.0 10^3/uL Red Blood Count 4.33 L 4.35-5.85 10^6/uL Hemoglobin 12.2 11.5-16.0 G/DL Hematocrit 38 35-52 % Mean Corpuscular Volume 87 80-99 FL Mean Corpuscular Hemoglobin 28 25-34 PG Mean Corpuscular Hemoglobin Concent 32 32-36 G/DL Red Cell Distribution Width 12.9 10.0-14.5 % Platelet Count 287 130-400 10^3/uL Mean Platelet Volume 10.4 7.4-10.4 FL Neutrophils (%) (Auto) 76 H 42-75 % Lymphocytes (%) (Auto) 15 12-44 % Monocytes (%) (Auto) 7 0-12 % Eosinophils (%) (Auto) 2 0-10 % Basophils (%) (Auto) 0 0-10 % Neutrophils # (Auto) 7.4 1.8-7.8 X 10^3 Lymphocytes # (Auto) 1.5 1.0-4.0 X 10^3 Monocytes # (Auto) 0.7 0.0-1.0 X 10^3 Eosinophils # (Auto) 0.2 0.0-0.3 10^3/uL Basophils # (Auto) 0.0 0.0-0.1 10^3/uL Sodium Level 145 135-145 MMOL/L Potassium Level 3.7 3.6-5.0 MMOL/L Chloride Level 110 H 98-107 MMOL/L Carbon Dioxide Level 24 21-32 MMOL/L Anion Gap 11 5-14 MMOL/L Blood Urea Nitrogen 17 7-18 MG/DL Creatinine 1.15 0.60-1.30 MG/DL Estimat Glomerular Filtration Rate 60 BUN/Creatinine Ratio 15 Glucose Level 96 70-105 MG/DL Calcium Level 9.6 8.5-10.1 MG/DL Total Bilirubin 0.6 0.1-1.0 MG/DL Aspartate Amino Transf (AST/SGOT) 96 H 5-34 U/L Alanine Aminotransferase (ALT/SGPT) 59 H 0-55 U/L Alkaline Phosphatase 103 40-136 U/L Total Protein 7.4 6.4-8.2 GM/DL Albumin 4.4 3.2-4.5 GM/DL Lipase 23 8-78 U/L My Orders Orders - PIPO TIJERINA MD Us Gallbladder [id number] (11/01/17 07:04) Vital Signs/I&O Vital Sign - Last 12Hours 11/01/17 05:30 Temp 97.5 Pulse 84 Resp 16 B/P (MAP) 110/71 (84) Pulse Ox 99 O2 Delivery Room Air Blood Pressure Mean: 84 Progress Note : Progress Note Seen and evaluated. Labs and UA ordered. Monitor patient. She declined pain or nausea medicine. Ultrasound ordered after labs reviewed. 819: Ultrasound results noted. Patient will likely need cholecystectomy as an outpatient. I have paged Dr. Gibson who is on-call. Patient remains pain free and I think this can be pursued as an outpatient procedure. Discharged home with return precautions. Patient verbalize understanding instructions and agreement with plan. Diagnostic Imaging Diagonstic Imaging: Ultrasound Plain Films/CT/US/NM/MRI: abdomen Comments VIA [facility]. [place], [place] NAME: KARLO AGUIRRE [facility] REC#: [id number] PT STATUS: REG ER : 1995 PHYSICIAN: PIPO TIJERINA MD ADMIT DATE: 11/01/17/ER Draft Date of Exam:11/01/17 US GALLBLADDER [id number] PROCEDURE: US Gallbladder. TECHNIQUE: Multiple real-time grayscale images were obtained over the right upper quadrant in various projections. INDICATION: Abdominal pain COMPARISON: None FINDINGS: The liver appears unremarkable. There is no biliary dilatation. The common bile duct measures about 4 mm. Pancreas appears unremarkable. Doppler imaging demonstrates normal hepatopedal flow in the main portal vein. The right kidney measures 10 cm in length and appears normal. There is a 6 mm echogenic focus with some shadowing seen adherent to the far wall of the gallbladder fundus, which is nonmobile. No gallbladder wall thickening or pericholecystic fluid is seen. There is no sonographic Forrest sign. IMPRESSION: 1. A 6 mm echogenic adherent focus along the far wall of the gallbladder fundus which is nonmobile. This may represent adherent calcified stone or possibly calcified polyp. No evidence of cholecystitis. 2. No additional abnormality is demonstrated. Dictated on workstation # [id number] Dict: 11/01/17 0745 Trans: 11/01/17 0750 MICAH [id number] Interpreted by: RADHA VELAZQUEZ DO Electronically signed by: Departure Impression Impression: Primary Impression: Cholelithiases Qualified Codes: K80.20 - Calculus of gallbladder without cholecystitis without obstruction Disposition: 01 HOME, SELF-CARE Condition: Stable Departure-Patient Inst. Decision time for Depature: 08:28 Referrals: NAGI GIBSON MD, JACQUELINE S DO (PCP/Family) Primary Care Physician Patient Instructions: Gallstones (DC) Add. Discharge Instructions: All discharge instructions reviewed with patient and/or family. Voiced understanding. Eat a low-fat diet. Drink plenty of fluids. Follow-up with Dr. Gibson. Call his office today for likely appointment tomorrow. Return for worse pain, fever , vomiting, weakness, breathing problems or other concerns as needed. Copy Copies To 1: NAGI GIBSON MD, TIMOTHY D MD Nov 01, 2017 06:43
[2017-11-01 06:46] LABS: ALBUMIN 4.4 GM/DL (3.2-4.5); BILIRUBIN,TOTAL 0.6 MG/DL (0.1-1.0); CALCIUM 9.6 MG/DL (8.5-10.1); CREATININE SERUM 1.15 MG/DL (0.60-1.30); POTASSIUM 3.7 MMOL/L (3.6-5.0); TOTAL PROTEIN 7.4 GM/DL (6.4-8.2)
--- NOTE | 2017-11-01 07:51 | Diagnostic Imaging Report ---
PROCEDURE: US Gallbladder. TECHNIQUE: Multiple real-time grayscale images were obtained over the right upper quadrant in various projections. INDICATION: Abdominal pain COMPARISON: None FINDINGS: The liver appears unremarkable. There is no biliary dilatation. The common bile duct measures about 4 mm. Pancreas appears unremarkable. Doppler imaging demonstrates normal hepatopedal flow in the main portal vein. The right kidney measures 10 cm in length and appears normal. There is a 6 mm echogenic focus with some shadowing seen adherent to the far wall of the gallbladder fundus, which is nonmobile. No gallbladder wall thickening or pericholecystic fluid is seen. There is no sonographic Forrest sign. IMPRESSION: 1. A 6 mm echogenic adherent focus along the far wall of the gallbladder fundus which is nonmobile. This may represent adherent calcified stone or possibly calcified polyp. No evidence of cholecystitis. 2. No additional abnormality is demonstrated. Dictated by: Dictated on workstation # [id number]
[2017-11-01 08:54] VITALS: BP 110/71
== END 2017-11-01 08:38 | disposition home or self-care (01) ==
LOC: EDUNIT# 05:24 → ER 05:26
DX: K80.20 Calculus of gallbladder without cholecystitis without obstruction (principal); F43.10 Post-traumatic stress disorder, unspecified; F32.9 Major depressive disorder, single episode, unspecified; Z87.2 Personal history of diseases of the skin and subcutaneous tissue; Z87.59 Personal history of other complications of pregnancy, childbirth and the puerperium
CPT/HCPCS: 36415; 76705; 80053; 81000; 83690; 84703; 85025; 87088; 99283

== ENCOUNTER 2017-11-20 06:10 | Outpatient (CLI) | payer BC, MEDICAID ==
[~2017-11-20] VITALS: Ht 167.6 cm; Wt 68.0 kg
[~2017-11-20 06:10] MED LIST changes: +ACHD5005 PO; -HYDR-3812 PO
== END 2017-11-20 12:39 ==
LOC: PREOP 06:10
PROVIDERS: ATTEND Surgery
DX: Z01.818 Encounter for other preprocedural examination (principal); K80.20 Calculus of gallbladder without cholecystitis without obstruction

== ENCOUNTER 2017-11-22 11:44 | Day surgery (SDC) | payer BC, MEDICAID ==
[~2017-11-22] VITALS: Ht 167.6 cm; Wt 68.0 kg
[~2017-11-22 11:44] MED LIST changes: -FERR-74 PO; +FERR325T18 PO
[2017-11-22 11:45] VITALS: BP 111/72
[2017-11-22] MEDS ORDERED: ceFAZolin INJECTION 1,000 MG in NS (IVPB) 50 ML IV ONE (12:00)
[2017-11-22] MEDS ORDERED: metroNIDAZOLE 500MG/100ML IVPB 100 ML IV ONE (12:00)
--- NOTE | 2017-11-22 12:00 | Progress Note-Pre Operative ---
Pre-Operative Progress Note H&P Reviewed The H&P was reviewed, patient examined and no changes noted. Date Seen by Provider: Nov 15, 2017 Time Seen by Provider: 12:55 Date H&P Reviewed: Nov 22, 2017 Time H&P Reviewed: 12:00 Pre-Operative Diagnosis: Gallstone NAGI GIBSON MD Nov 22, 2017 12:00 pm
[2017-11-22 12:15] LABS: BASOPHILS % (AUTO) 0 % (0-10); EOSINOPHILS # (AUTO) 0.1 10^3/uL (0.0-0.3); EOSINOPHILS % (AUTO) 2 % (0-10); HEMATOCRIT 41 % (35-52); HEMOGLOBIN 13.3 G/DL (11.5-16.0); LYMPHOCYTES % (AUTO) 29 % (12-44); MEAN CORPUSCULAR HEMOGLOBIN 28 PG (25-34); MEAN CORPUSCULAR HGB CONC 33 G/DL (32-36); MEAN CORPUSCULAR VOLUME 85 FL (80-99); MEAN PLATELET VOLUME 9.7 FL (7.4-10.4); MONOCYTES # (AUTO) 0.6 X 10^3 (0.0-1.0); MONOCYTES % (AUTO) 9 % (0-12); NEUTROPHILS # (AUTO) 4.1 X 10^3 (1.8-7.8); NEUTROPHILS % (AUTO) 60 % (42-75); PLATELET COUNT 371 10^3/uL (130-400); RED BLOOD COUNT 4.75 10^6/uL (4.35-5.85); RED CELL DISTRIBUTION WIDTH 13.1 % (10.0-14.5)
[2017-11-22] MEDS ORDERED: BUP/EPI 0.5% 1:200,000 (MARCAINE) 10ML VIAL IJ ONE (12:19)
[2017-11-22] MEDS ORDERED: LACTATED RINGERS 1,000 ML IV PRN (12:20)
[2017-11-22] MEDS ORDERED: fentaNYL INJECTION 100 MCG/2 ML AMP ONE ×2 (12:33→13:15)
[2017-11-22] MEDS ORDERED: ROCURONIUM 50 MG/5 ML (ZEMURON) VIAL IV ONE (12:33)
[2017-11-22] MEDS ORDERED: DEXAMETHASONE 10 MG/ML (DECADRON) 1 ML VIAL ONE (12:33)
[2017-11-22] MEDS ORDERED: LIDOCAINE PF 2% 5 ML (XYLOCAINE) VIAL ONE (12:33)
[2017-11-22] MEDS ORDERED: ONDANSETRON 4 MG/2 ML (SDV) Z0FRAN ONE (12:33)
[2017-11-22] MEDS ORDERED: LIDOCAINE JELLY 2% (XYLOCAINE) 5 ML TUBE ONE (12:33)
[2017-11-22] MEDS ORDERED: SEVOFLURANE (ULTANE) 15 ML INHAL SOLN ONE ×2 (12:33→13:55)
[2017-11-22] MEDS ORDERED: proPOfol 200 MG/20 ML (DIPRIVAN) VIAL IV ONE (12:33)
[2017-11-22] MEDS ORDERED: MIDAZOLAM 10 MG/2 ML (VERSED) VIAL ONE (12:33)
[2017-11-22] MEDS: LACTATED RINGERS 1,000 ML IV PRN ×2 (12:37→13:25)
[2017-11-22] MEDS ORDERED: GLYCOPYRROLATE 0.2 MG/ML (ROBINUL) 2 ML VIAL ONE (13:42)
[2017-11-22] MEDS ORDERED: NEOSTIGMINE (BLOXIVERZ ) 1 MG/1ML 10 ML VIAL ONE (13:42)
[2017-11-22] MEDS ORDERED: morphine INJ 10 MG/ML 1ML (SYR OR VIAL) ONE (13:44)
[2017-11-22] MEDS ORDERED: ACHD5005 PO (14:05)
--- NOTE | 2017-11-22 14:06 | Discharge Inst-Simple/Standard ---
Discharge Inst-Standard Discharge Medications New, Converted or Re-Newed RX: RX on Chart Patient Instructions/Follow Up Plan of Care/Instructions/FU: Dressings off in 48 hours. Incentive spirometry. Follow-up in 3 weeks. Activity as Tolerated: Yes Discharge Diet: No Restrictions NAGI GIBSON MD Nov 22, 2017 2:06 pm
[2017-11-22] MEDS ORDERED: MEPERIDINE (DEMEROL) INJ 50 MG/ML IVP PRN (14:15)
[2017-11-22] MEDS ORDERED: ONDANSETRON 4 MG/2 ML (SDV) Z0FRAN IVP PRN (14:15)
[2017-11-22] MEDS ORDERED: morphine INJ 10 MG/ML 1ML (SYR OR VIAL) IVP PRN (14:15)
--- NOTE | 2017-11-22 14:42 | Operative Report ---
Operative Report Date of Procedure/Surgery Nov 22, 2017 Surgeon (s) NAGI GIBSON MD Knitting Teacher (s): Jeff Ricardo (Med Student III) Post-Operative Diagnosis Same Procedure Performed Robotic-assisted cholecystectomy Description of Procedure Anesthesia Type: General Estimated blood loss (mL): Minimal Specimen(s) collected/removed Gallbladder Description of the Procedure Indication for the procedure: This lady presented with symptoms gallstone. She was offered cholecystectomy using minimally invasive technique with the robotic. Informed consent was obtained after reviewing the operative details and complications of wound infection and bile leak. Description of procedure: She was placed supine on the operative table and general anesthesia induced using an endotracheal tube. A gram of Ancef and 5 mg of Flagyl were administered intravenously as prophylaxis sequential compression devices were placed around her legs, to minimize the risk of venous thrombosis. Abdomen was prepared and draped in the usual sterile manner. Pneumoperitoneum was established using a Veress needle introduced over the subumbilical region. Intra-abdominal pressure was maintained at 15 mmHg, using carbon dioxide insufflation. A 12 mm trocar was placed and anatomy visualized using the high definition, 3-dimensional laparoscope associated with da Jose system. Under direct view, I placed an 8 mm trocar over each side of the abdomen, followed by a 5 mm trocar over the left subcostal region. The patient was then turned into reverse Trendelenburg position and the robotic system docked. The fundus of the gallbladder was retracted cephalad and the infundibulum grasped with Cadiere forceps.. Peritoneum overlying Calot's triangle was incised using the hook cautery, delineating the cystic duct, which was rather slender and the cystic artery. Both were divided between locking clips. Cholecystectomy was then completed using the hook cautery. Subhepatic space was irrigated with saline and the gallbladder placed in an Endo Catch bag, to be removed via the subumbilical trocar site. The fascia over this incision was closed using #1 Vicryl using a Thomas Baez device, under direct lap scopic view. Skin incisions were closed using 4-0 Vicryl, in a subcuticular fashion. 0.5 percent Marcaine with epinephrine was infiltrated along the incisions, both preemptively and at the conclusion of the operation. She tolerated the procedure well and was extubated in the operating room, before being taken to the recovery room in a stable condition. Findings of the Procedure See op report Allergies and Home Medications Allergies Coded Allergies: No Known Drug Allergies (Unverified , 11/20/17) Home Medications Hydrocodone Bit/Acetaminophen 1 Tab Tab, 1-2 TAB PO 4-6HR PRN for PAIN, #30 Ref 0 Prescribed by: NAGI GIBSON on 11/22/17 1405 Vit/Iron Fumarate/FA 1 Each Tablet, 1 EACH PO DAILY, (Reported) NAGI GIBSON MD Nov 22, 2017 2:42 pm
[2017-11-22 15:00] VITALS: BP 121/61
[2017-11-22 15:40] VITALS: BP 121/82
[2017-11-22] MEDS ORDERED: HYDROcodone/APAP 5 MG/325 MG (LORTAB) TAB PO PRN (15:45)
[2017-11-22 16:20] VITALS: BP 118/80
[2017-11-22 16:35] VITALS: BP 118/80
== END 2017-11-22 16:35 | disposition home or self-care (01) ==
LOC: SDC 11:44
PROVIDERS: ATTEND Surgery
DX: K81.1 Chronic cholecystitis (principal); Z11.2 Encounter for screening for other bacterial diseases; F32.9 Major depressive disorder, single episode, unspecified; F41.9 Anxiety disorder, unspecified; F43.10 Post-traumatic stress disorder, unspecified
CPT/HCPCS: 36415; 84703; 85025; 87081; 94664

== ENCOUNTER → 2019-09-21 | Outpatient (CLI) | payer BC ==
--- NOTE | 2019-09-21 12:57 | Diagnostic Imaging Report ---
INDICATION: Left finger pain after trauma. COMPARISON: None available. TECHNIQUE: Three views of the left index finger were obtained. FINDINGS: No acute fracture or traumatic malalignment. No radiopaque foreign body. Minimal soft tissue swelling is present. IMPRESSION: No acute osseous abnormality of the left index finger. Dictated by: Dictated on workstation # [id number]
== END ==
LOC: RAD 12:13
PROVIDERS: ATTEND Nurse Practitioner Family
DX: M79.645 Pain in left finger(s) (principal)
CPT/HCPCS: 73140